=== PATIENT | female | born 2005 | race Caucasian/White ===

== ENCOUNTER 2025-01-11 14:24 | Inpatient (IN) | payer OTHER ==
[~2025-01-11] VITALS: Ht 152.4 cm; Wt 52.0 kg
[2025-01-11] MEDS ORDERED: LEVE-71 PO (14:48)
[2025-01-11] MEDS ORDERED: INSU100I24 SQ (14:48)
[2025-01-11] MEDS ORDERED: INSU100I15 SQ (14:48)
[2025-01-11] MEDS ORDERED: GLUC3SPR5 NASAL (14:56)
[2025-01-11 15:01] LABS: GLUCOMETER DEV NAME(LOC) ERT.7; GLUCOSE,POINT OF CARE 372 MG/DL (70-110)
[2025-01-11] MEDS ORDERED: DEXTROSE 50%-WATER 25 GM/50 ML SYRINGE IVP PRN (15:30)
[2025-01-11] MEDS ORDERED: ONDANSETRON HCL 4 MG/2 ML VIAL IVP PRN (15:30)
[2025-01-11] MEDS ORDERED: MAGNESIUM HYDROXIDE SUSPENSION 30 ML UDCUP PO PRN (15:30)
[2025-01-11] MEDS ORDERED: BISACODYL 10 MG RECTAL RECTAL SUPPOSITORY PR PRN (15:30)
[2025-01-11 15:33] LABS: PLATELET COUNT (AUTO) 326 K/uL (150-450); RED BLOOD CELL COUNT(AUTO) 4.65 MIL/uL (4.00-5.20); RED CELL DISTRIBUTION WIDTH 16.0 % (11.5-14.5); WHITE BLOOD COUNT (AUTO) 10.2 K/uL (4.5-11.0)
[2025-01-11] MEDS: SODIUM CHLORIDE 0.9% 2,000 ML IV ONE (15:33)
[2025-01-11 15:35] LABS: CALCIUM, TOTAL 9.7 mg/dL (8.8-10.5); CREATININE 0.93 mg/dL (0.60-1.30); GLOMERULAR FILTR. RATE CALC > 60 mL/min (>60); GLUCOSE,RANDOM 359 mg/dL (70-110); SODIUM SERUM 135 mmol/L (136-145); UREA NITROGEN, BLOOD 10 mg/dL (7-18)
[2025-01-11] MEDS: KETOROLAC TROMETHAMINE 30 MG/ML VIAL IVP ONE (15:35)
[2025-01-11] MEDS: INSULIN REGULAR, HUMAN 100 UNITS/ML IVP ONE (15:37)
[2025-01-11] MEDS: HEPARIN SODIUM,PORCINE 5,000 UNITS/ML VIAL SQ SCH (15:40)
[2025-01-11 15:41] LABS: ACETONE,BLOOD NEGATIVE (NEGATIVE)
[2025-01-11] MEDS ORDERED: FLUO-342 PO (17:56)
[2025-01-11 18:01] VITALS: BP 117/75; PULSE 94; RESP 18; TEMP 98.5; O2SAT 100
[2025-01-11 19:43] LABS: APPEARANCE,URINE CLEAR (CLEAR); GLUCOSE, URINE (UA) >=1000 mg/dL (NEGATIVE); LEUKOCYTE ESTERASE ,URINE NEGATIVE (NEGATIVE); NITRATE,URINE NEGATIVE (NEGATIVE); OCCULT BLOOD,URINE NEGATIVE (NEGATIVE); SPECIFIC GRAVITIY, URINE 1.033 (1.003-1.030)
[2025-01-11 19:54] VITALS: BP 109/68; PULSE 97; RESP 18; TEMP 98.6; O2SAT 100
[2025-01-11] MEDS: INSULIN LISPRO 100 UNITS/ML SQ PRN (20:33)
[2025-01-11] MEDS: INSULIN GLARGINE,HUM.REC.ANLOG 100 UNITS/ML SQ SCH (20:33)
[2025-01-11] MEDS: DOCUSATE SODIUM 100 MG CAPSULE PO SCH (20:36)
[2025-01-11] MEDS: ZOLPIDEM TARTRATE 5 MG TABLET PO PRN (20:36)
[2025-01-11 20:57] LABS: SQUAMOUS EPITHELIAL CELL,UR Few /LPF (None Seen)
[2025-01-12 04:09] VITALS: BP 121/73; PULSE 87; RESP 18; TEMP 98.6; O2SAT 98
[2025-01-12] MEDS: ACETAMINOPHEN 325 MG TABLET PO PRN (04:09)
[2025-01-12 05:25] LABS: GLUCOMETER DEV NAME(LOC) 6S.1D; GLUCOSE,POINT OF CARE 276 MG/DL (70-110)
[2025-01-12 06:45] LABS: GLUCOMETER DEV NAME(LOC) 6N.2C; GLUCOSE,POINT OF CARE 320 MG/DL (70-110)
[2025-01-12] MEDS: PANTOPRAZOLE SODIUM 40 MG DR TABLET PO SCH (08:43)
[2025-01-12 08:47] VITALS: BP 108/71; PULSE 83; RESP 19; TEMP 98.2; O2SAT 98
[2025-01-12 15:46] VITALS: BP 125/79; PULSE 85; RESP 18; TEMP 98.6; O2SAT 100
[2025-01-12 17:55] LABS: GLUCOMETER DEV NAME(LOC) 6S.1D; GLUCOSE,POINT OF CARE 260 MG/DL (70-110)
[2025-01-12 18:46] LABS: GLUCOMETER DEV NAME(LOC) 6S.2; GLUCOSE,POINT OF CARE 240 MG/DL (70-110)
[2025-01-12 19:50] VITALS: BP 114/74; PULSE 85; RESP 18; TEMP 99; O2SAT 96
[2025-01-12] MEDS: INSULIN GLARGINE,HUM.REC.ANLOG 100 UNITS/ML SQ SCH (20:50)
[2025-01-12 23:01] LABS: GLUCOMETER DEV NAME(LOC) 6S.1D; GLUCOSE,POINT OF CARE 290 MG/DL (70-110)
[2025-01-13 05:03] VITALS: BP 117/66; PULSE 91; RESP 18; TEMP 99; O2SAT 97
[2025-01-13 07:05] LABS: GLUCOMETER DEV NAME(LOC) 6S.2; GLUCOSE,POINT OF CARE 77 MG/DL (70-110)
[2025-01-13 07:27] VITALS: BP 116/78; PULSE 94; RESP 19; TEMP 98; O2SAT 97
[2025-01-13 11:40] LABS: GLUCOMETER DEV NAME(LOC) 6N.2C; GLUCOSE,POINT OF CARE 217 MG/DL (70-110)
[2025-01-13 11:40] LABS: GLUCOMETER DEV NAME(LOC) 6N.2C; GLUCOSE,POINT OF CARE 189 MG/DL (70-110)
[2025-01-13] MEDS ORDERED: INSLAN SQ (11:46)
[2025-01-14 22:06] LABS: HEPATITIS C AB (EIA) Non Reactive (Non Reactive)
== END 2025-01-13 17:02 | DRG 639 ==
LOC: EMS 14:27 → EDH 15:14 → 6N 17:51
PROVIDERS: ADMIT Internal Medicine; ATTEND Internal Medicine
DX: E10.65 Type 1 diabetes mellitus with hyperglycemia (principal); G40.909 Epilepsy, unspecified, not intractable, without status epilepticus; F41.9 Anxiety disorder, unspecified; Z88.5 Allergy status to narcotic agent
CPT/HCPCS: 80048; 81001; 82009; 82962; 83690; 84703; 85025; 86803; 87340; 96361; 96374; 96375; 99285; J1644; J1815; J1885; J7030; 36415-L1; 36415-TC